=== PATIENT | female | born 1955 | race Caucasian/White ===

== ENCOUNTER 2022-10-22 15:30 | Emergency (ER) | payer OTHER, MEDICARE ==
[2022-10-22 16:14] LABS: CHLORIDE,CL 104 mEq/L (98-106); SODIUM,NA 141 mEq/L (136-145)
[2022-10-22 16:15] LABS: ESTIMATED GFR 96 mL/min (>=60)
== END 2022-10-22 17:10 | disposition home or self-care (01) ==
LOC: CC.ED 15:30 → MERGE 15:30 → CC.ED 17:10
DX: S20.212A Contusion of left front wall of thorax, initial encounter (principal); V43.62XA Car passenger injured in collision with other type car in traffic accident, initial encounter; Y92.410 Unspecified street and highway as the place of occurrence of the external cause
CPT/HCPCS: 36415; 71101-LT; 80053; 82150; 84484; 85025; 85610; 93005; 93010; 99284

== ENCOUNTER 2025-07-08 10:29 | Day surgery (SDC) | payer MEDICARE, OTHER ==
[2025-07-08] MEDS: Lactated Ringers 1,000 ML IV SCH (10:45)
[2025-07-08] MEDS ORDERED: Ketamine 200 MG/20 ML MDV ONE (11:40)
[2025-07-08] MEDS ORDERED: Propofol 200 MG/20 ML SDV ONE ×3 (11:40)
[2025-07-08] MEDS ORDERED: fentaNYL 50 MCG/ML SDV ONE ×2 (11:40)
[2025-07-08] MEDS ORDERED: Midazolam 1 MG/ML 2 ML SDV ONE (11:40)
[2025-07-08] MEDS ORDERED: Phenylephrine 1% 10 MG/ML SDV ONE (11:40)
[2025-07-08] MEDS ORDERED: ePHEDrine 50 MG/ML SDV ONE (11:40)
== END 2025-07-08 14:00 | disposition home or self-care (01) ==
LOC: CC.SDS 10:29
PROVIDERS: ATTEND Surgery
DX: Z12.11 Encounter for screening for malignant neoplasm of colon (principal); C18.7 Malignant neoplasm of sigmoid colon; C83.13 Mantle cell lymphoma, intra-abdominal lymph nodes; D12.6 Benign neoplasm of colon, unspecified; D12.8 Benign neoplasm of rectum; K63.5 Polyp of colon; Z88.8 Allergy status to other drugs, medicaments and biological substances; Z79.899 Other long term (current) drug therapy
CPT/HCPCS: 00811; 88305; 88341; 88342; J2250; J2371; J2704; J3010; J3490; J7120